=== PATIENT | male | born 1980 | race Caucasian/White ===

== ENCOUNTER 2020-04-02 10:24 | Emergency (ER) | payer OTHER ==
[2020-04-02 10:56] VITALS: TEMP 97.9
--- NOTE | 2020-04-02 12:08 | XR ---
EXAMINATION TYPE: XR lumbosacral spine min 4V DATE OF EXAM: 04/02/2020 CLINICAL HISTORY: pain COMPARISON: NONE TECHNIQUE: Frontal, lateral, and oblique images of the lumbar spine are obtained. FINDINGS: There are 5 lumbar type vertebral bodies identified. The lumbar spine shows satisfactory alignment without evidence of acute fracture or dislocation. Vertebral body heights are within normal limits. Mild degenerative disc space narrowing L5-S1. Right-sided nephrolithiasis. IMPRESSION: No acute fracture or dislocation is seen in the lumbar spine.ICD 10 NO FRACTURE, INITIAL EVALUATION
--- NOTE | 2020-04-02 12:26 | ED ---
Back Pain HPI - General Chief Complaint: Back Pain/Injury Stated Complaint: back injury Time Seen by Provider: 04/02/20 10:58 Source: patient, RN notes reviewed Limitations: no limitations - History of Present Illness Initial Comments: This a 31-year-old male presents emergency Department chief complaint low back pain. Patient states that he started working his abdomen states that the lifting is causing increased back pain. Patient also states that he fell shoveling snow last couple days. Patient denies any bowel, bladder incontinence or retention or saddle anesthesias. Patient states that he is able to cannulate with no difficulty. Patient states he does have a history of disc issue. Patient has no abdominal plain no other injuries. - Related Data Home Medications Medication Instructions Recorded Confirmed ALPRAZolam [Xanax] 0.5 mg PO BID PRN 04/02/20 04/02/20 Previous Rx's Medication Instructions Recorded Cyclobenzaprine [Flexeril] 10 mg PO TID PRN #15 tab 04/02/20 Ibuprofen [Motrin] 600 mg PO Q8HR PRN #30 tab 04/02/20 Allergies Allergy/AdvReac Type Severity Reaction Status Date / Time No Known Allergies Allergy Verified 04/02/20 12:11 Review of Systems ROS Statement: Those systems with pertinent positive or pertinent negative responses have been documented in the HPI. ROS Other: All systems not noted in ROS Statement are negative. Past Medical History Past Medical History: No Reported History History of Any Multi-Drug Resistant Organisms: None Reported Past Surgical History: No Surgical Hx Reported Past Psychological History: Anxiety Smoking Status: Current every day smoker Past Alcohol Use History: Occasional Past Drug Use History: None Reported General Exam Limitations: no limitations General appearance: alert, in no apparent distress Head exam: Present: atraumatic, normocephalic, normal inspection Eye exam: Present: normal appearance, PERRL, EOMI. Absent: scleral icterus, conjunctival injection, periorbital swelling ENT exam: Present: normal exam, normal oropharynx, mucous membranes moist Neck exam: Present: normal inspection, full ROM. Absent: tenderness, meningismus, lymphadenopathy Respiratory exam: Present: normal lung sounds bilaterally. Absent: respiratory distress, wheezes, rales, rhonchi, stridor Cardiovascular Exam: Present: regular rate, normal rhythm, normal heart sounds. Absent: systolic murmur, diastolic murmur, rubs, gallop, clicks Back exam: Present: normal inspection, full ROM, tenderness, muscle spasm, paraspinal tenderness. Absent: CVA tenderness (R), CVA tenderness (L), vertebral tenderness Neurological exam: Present: alert, oriented X3, CN II-XII intact, reflexes normal. Absent: motor sensory deficit Skin exam: Present: warm, dry, intact, normal color. Absent: rash Course Vital Signs 04/02/20 04/02/20 10:54 12:36 Temperature 97.9 F Pulse Rate 105 H 96 Respiratory 16 18 Rate Blood Pressure 138/87 132/81 O2 Sat by Pulse 100 99 Oximetry Medical Decision Making - Medical Decision Making X-rays are negative for acute [place]. Patient's INTACT no red flag symptoms. Patient be discharged in stable condition patient advised follow-up with PCP and orthopedics if no improvement. Disposition Clinical Impression: Strain of lumbar region Disposition: HOME SELF-CARE Condition: Stable Instructions (If sedation given, give patient instructions): Acute Low Back Pain (ED) Additional Instructions: Please return to the Emergency Department if symptoms worsen or any other concerns. Prescriptions: Cyclobenzaprine [Flexeril] 10 mg PO TID PRN #15 tab PRN Reason: Muscle Spasm Ibuprofen [Motrin] 600 mg PO Q8HR PRN #30 tab PRN Reason: Pain Is patient prescribed a controlled substance at d/c from ED?: No Referrals: Albino Gregg MD [Primary Care Provider] - 1-2 days Time of Disposition: 12:26
[2020-04-02 12:36] VITALS: BP 132/81; PULSE 96; RESP 18
== END 2020-04-02 12:36 | disposition home or self-care (01) ==
LOC: EC 10:24
DX: S39.012A Strain of muscle, fascia and tendon of lower back, initial encounter (principal); F41.9 Anxiety disorder, unspecified; F17.200 Nicotine dependence, unspecified, uncomplicated; W19.XXXA Unspecified fall, initial encounter; Y93.H1 Activity, digging, shoveling and raking
CPT/HCPCS: 72110; 99283

== ENCOUNTER 2020-04-02 21:46 | Emergency (ER) | payer OTHER ==
[2020-04-02 21:53] VITALS: RESP 18
--- NOTE | 2020-04-02 22:03 | ED ---
Fall HPI - General Chief Complaint: Fall Stated Complaint: Fall, ETOH Time Seen by Provider: 04/02/20 21:52 Source: patient, EMS, RN notes reviewed Mode of arrival: EMS - History of Present Illness Initial Comments: Patient is a 39-year-old male that presents to emergency department status post fall at the bar. He was recently discharged from the ER today at 12:30 PM for back pain. He was prescribed Flexeril and Motrin. He noted to several patterns at the bar that he took a Xanax before arriving to the bar. He was brought in by EMS but they state that he was reluctant to come and didn't want to. Patient was tired during exam closing his eyes slowly answer questions. Stated that he just wanted to go home. He noted no complaints or issues was not complaining of any pain. He was informed that we have to clear his C-spine before able to discharge him home or movement with a treatment. He denied any chest pain first breath headache nausea vomiting diarrhea constipation fever fatigue chills loss of consciousness change in vision. - Related Data Home Medications Medication Instructions Recorded Confirmed ALPRAZolam [Xanax] 0.5 mg PO BID PRN 04/02/20 04/02/20 Previous Rx's Medication Instructions Recorded Cyclobenzaprine [Flexeril] 10 mg PO TID PRN #15 tab 04/02/20 Ibuprofen [Motrin] 600 mg PO Q8HR PRN #30 tab 04/02/20 Allergies Allergy/AdvReac Type Severity Reaction Status Date / Time No Known Allergies Allergy Verified 04/02/20 12:11 Review of Systems ROS Statement: Those systems with pertinent positive or pertinent negative responses have been documented in the HPI. ROS Other: All systems not noted in ROS Statement are negative. Past Medical History Past Medical History: No Reported History History of Any Multi-Drug Resistant Organisms: None Reported Past Surgical History: No Surgical Hx Reported Past Psychological History: Anxiety Smoking Status: Current every day smoker Past Alcohol Use History: Occasional Past Drug Use History: None Reported General Exam Limitations: altered mental status General appearance: alert, in no apparent distress, obese Head exam: Present: atraumatic, normocephalic, normal inspection Eye exam: Present: normal appearance, PERRL, EOMI. Absent: scleral icterus, conjunctival injection, periorbital swelling ENT exam: Present: normal exam, mucous membranes moist Neck exam: Present: normal inspection, other (C-collar in place). Absent: tenderness, meningismus, lymphadenopathy Respiratory exam: Present: normal lung sounds bilaterally. Absent: respiratory distress, wheezes, rales, rhonchi, stridor Cardiovascular Exam: Present: regular rate, normal rhythm, normal heart sounds. Absent: systolic murmur, diastolic murmur, rubs, gallop, clicks GI/Abdominal exam: Present: soft, normal bowel sounds. Absent: distended, tenderness, guarding, rebound, rigid Extremities exam: Present: normal inspection, full ROM, normal capillary refill. Absent: tenderness, pedal edema, joint swelling, calf tenderness Neurological exam: Present: alert, oriented X3, CN II-XII intact Psychiatric exam: Present: normal affect, depressed Skin exam: Present: warm, dry, intact, normal color. Absent: rash Course Vital Signs 04/02/20 21:47 Temperature 98.2 F Pulse Rate 89 Respiratory 18 Rate Blood Pressure 107/68 O2 Sat by Pulse 90 L Oximetry - Reevaluation(s) Reevaluation #1: 04/02/20 22:31 Patient remove c-collar on his own, tried getting up and out of bed, appeared unstable. He was stopped before standing up and walking and is now back laying in bed. Medical Decision Making - Medical Decision Making 39-year-old male status post fall the bar. C-collar in place. CT of brain and C-spine ordered. Case discussed with Dr. Campos, was decided the patient could be discharged after becoming clinically sober. As he does not have a ride home and was taken taxicab. He does have a roommate days in [place] but patient doesn't recall him to bother him. - Radiology Data Radiology results: report reviewed, image reviewed Negative computed tomography scan of the brain, negative computed tomography scan of cervical spine Disposition Clinical Impression: Fall Disposition: HOME SELF-CARE Condition: Stable Additional Instructions: Please return to the Emergency Department if symptoms worsen or any other concerns. Follow-up with primary care 1-2 days. Follow-up with orthopedic still if back pain gets worse. Is patient prescribed a controlled substance at d/c from ED?: No Referrals: Albino Gregg MD [Primary Care Provider] - 1-2 days Time of Disposition: 22:43
--- NOTE | 2020-04-02 22:32 | CT ---
EXAMINATION TYPE: CT brain cspine wo con DATE OF EXAM: 04/02/2020 COMPARISON: None HISTORY: fall, posterior head injury CT DLP: 2463.6 mGycm Automated exposure control for dose reduction was used. Ventricles have normal size. There is no mass effect nor midline shift. There is no sign of intracran ial hemorrhage. Calvarium is intact. There is no evidence of cerebral edema. The skull base is intact . There is normal aeration of the mastoid sinuses. The occipital bone is intact. The cervical vertebra have normal spacing and alignment. Posterior elements are intact. Facet joints appear normal. There is no evidence of a fracture. Prevertebral soft tissues appear normal. There is no paraspinal mass. IMPRESSION: Negative CT scan of the brain. Negative CT scan cervical spine.
[2020-04-03 00:06] VITALS: BP 128/86; PULSE 108; TEMP 97.5
== END 2020-04-03 00:15 | disposition home or self-care (01) ==
LOC: EC 21:46
DX: Z04.3 Encounter for examination and observation following other accident (principal); F41.9 Anxiety disorder, unspecified; F32.9 Major depressive disorder, single episode, unspecified; F17.200 Nicotine dependence, unspecified, uncomplicated
CPT/HCPCS: 70450; 72125; 99284

== ENCOUNTER 2021-04-05 03:47 | Emergency (ER) | payer OTHER ==
[2021-04-05 03:57] VITALS: BP 127/93; PULSE 88; RESP 18
[2021-04-05] MEDS ORDERED: SULFAMETHOX-TMP 800-160MG 1 EACH TAB PO STA (04:23)
[2021-04-05] MEDS ORDERED: MUPIROCIN 2% OINT 22 GM TUBE TOPICAL STA (04:23)
[2021-04-05] MEDS ORDERED: CEPHALEXIN 500 MG CAP PO STA (04:23)
[2021-04-05] MEDS ORDERED: ACETAMINOPHEN TAB 500 MG TAB PO STA (04:24)
[2021-04-05] MEDS ORDERED: IBUPROFEN 800 MG TAB PO STA (04:24)
[2021-04-05 04:26] VITALS: TEMP 99.4
--- NOTE | 2021-04-05 04:38 | ED ---
Skin/Abscess/FB HPI - General Chief complaint: Skin/Abscess/Foreign Body Stated complaint: Infection on hand Time Seen by Provider: 04/05/21 04:05 Source: patient, RN notes reviewed, old records reviewed Mode of arrival: ambulatory Limitations: no limitations - History of Present Illness Initial comments: Is a 40-year-old male DF for evaluation of significant infection the left hand. And rash with crossed, patient states the restraints.. Very significantly is a little bit swollen maybe mildly painful. No prior history of similar issue. No exposure no,. Patient is no laxity or also noticed fever today. Patient is no medical history takes no medications complaint: rash (Left hand) -: days(s) Tetanus Up to Date: yes Location: L hand Severity: moderate Severity scale (1-10): 7 Quality: burning, aching Consistency: constant Improves with: none Worsens with: none Context: none Associated symptoms: fever Treatments Prior to Arrival: none - Related Data Home Medications Medication Instructions Recorded Confirmed ALPRAZolam [Xanax] 0.5 mg PO BID PRN 04/02/20 04/02/20 Previous Rx's Medication Instructions Recorded Cyclobenzaprine [Flexeril] 10 mg PO TID PRN #15 tab 04/02/20 Ibuprofen [Motrin] 600 mg PO Q8HR PRN #30 tab 04/02/20 Cephalexin [Keflex] 500 mg PO Q6HR #40 cap 04/05/21 Mupirocin Calcium 2% Cream 1 applic TOPICAL TID #15 gm 04/05/21 [Bactroban 2% Cream] Sulfamethox-Tmp 800-160Mg [Bactrim 2 tab PO BID #40 tab 04/05/21 DS 800-160 mg] Allergies Allergy/AdvReac Type Severity Reaction Status Date / Time No Known Allergies Allergy Verified 04/05/21 03:57 Review of Systems ROS Statement: Those systems with pertinent positive or pertinent negative responses have been documented in the HPI. ROS Other: All systems not noted in ROS Statement are negative. Past Medical History Past Medical History: No Reported History History of Any Multi-Drug Resistant Organisms: None Reported Past Surgical History: No Surgical Hx Reported Past Psychological History: Anxiety Smoking Status: Current every day smoker Past Alcohol Use History: Occasional Past Drug Use History: None Reported General Exam Limitations: no limitations General appearance: alert, in no apparent distress Head exam: Present: atraumatic, normocephalic, normal inspection Eye exam: Present: normal appearance, PERRL, EOMI. Absent: scleral icterus, conjunctival injection, periorbital swelling ENT exam: Present: normal exam, mucous membranes moist Neck exam: Present: normal inspection. Absent: tenderness, meningismus, lymphadenopathy Respiratory exam: Present: normal lung sounds bilaterally. Absent: respiratory distress, wheezes, rales, rhonchi, stridor Cardiovascular Exam: Present: regular rate, normal rhythm, normal heart sounds. Absent: systolic murmur, diastolic murmur, rubs, gallop, clicks GI/Abdominal exam: Present: soft, normal bowel sounds. Absent: distended, tenderness, guarding, rebound, rigid Extremities exam: Present: normal inspection, full ROM, normal capillary refill, other (Patient has an impetigo-like rash to left hand). Absent: tenderness, pedal edema, joint swelling, calf tenderness Back exam: Present: normal inspection Neurological exam: Present: alert, oriented X3, CN II-XII intact Psychiatric exam: Present: normal affect, normal mood Skin exam: Present: warm, dry, intact, normal color. Absent: rash Course Vital Signs 04/05/21 04/05/21 03:55 04:25 Temperature 100.4 F H 99.4 F Pulse Rate 88 Respiratory 18 Rate Blood Pressure 127/93 O2 Sat by Pulse 97 Oximetry - Reevaluation(s) Reevaluation #1: 04/05/21 04:36 Medical record is reviewed Reevaluation #2: 04/05/21 04:36 Patient is informed of results and questions answered Reevaluation #3: 04/05/21 04:36 Patient given first doses of antibiotics and fever control here in the ER Medical Decision Making - Medical Decision Making 40 male the ER with impetigo, staff reaction ration of left hand. Patient placed on antibiotics oral and topical and can be discharged home Disposition Clinical Impression: Impetigo, Left hand pain Narrative: Impetigo of Left Hand Disposition: HOME SELF-CARE Condition: Good Instructions (If sedation given, give patient instructions): Impetigo (ED) Prescriptions: Sulfamethox-Tmp 800-160Mg [Bactrim DS 800-160 mg] 2 tab PO BID #40 tab Mupirocin Calcium 2% Cream [Bactroban 2% Cream] 1 applic TOPICAL TID #15 gm Cephalexin [Keflex] 500 mg PO Q6HR #40 cap Is patient prescribed a controlled substance at d/c from ED?: No Referrals: Ila Moss MD [Primary Care Provider] - 1-2 days
== END 2021-04-05 05:02 | disposition home or self-care (01) ==
LOC: EC 03:47
DX: M79.642 Pain in left hand (principal); L01.00 Impetigo, unspecified; F17.200 Nicotine dependence, unspecified, uncomplicated
CPT/HCPCS: 99283

== ENCOUNTER 2021-05-23 17:24 | Emergency (ER) | payer OTHER ==
[2021-05-23 17:35] VITALS: BP 146/90; PULSE 114; RESP 18; TEMP 98.8
--- NOTE | 2021-05-23 18:05 | ED ---
General Adult HPI - General Chief complaint: Shortness of Breath Stated complaint: Headache, Nausea, Chills Time Seen by Provider: 05/23/21 17:40 Source: patient, RN notes reviewed Mode of arrival: ambulatory Limitations: no limitations - History of Present Illness Initial comments: Patient is a pleasant 41-year-old male presents emergency department with concern for COVID-19 infection. Patient had onset of symptoms late last night. Patient tested positive twice at home today. Patient would like to be tested again today for documentation for work. Patient complains of cough and congestion. Mild shortness of breath. Patient has mild headache. Mild nausea. No diarrhea. No loss of taste or smell. No calf pain or leg swelling. - Related Data Home Medications Medication Instructions Recorded Confirmed Ibuprofen [Motrin Ib] 800 mg PO Q8H PRN 05/23/21 05/23/21 Allergies Allergy/AdvReac Type Severity Reaction Status Date / Time No Known Allergies Allergy Verified 05/23/21 18:08 Review of Systems ROS Statement: Those systems with pertinent positive or pertinent negative responses have been documented in the HPI. ROS Other: All systems not noted in ROS Statement are negative. Constitutional: Reports: fever, chills Eyes: Denies: eye pain ENT: Reports: congestion Respiratory: Reports: as per HPI, cough Cardiovascular: Denies: chest pain Endocrine: Reports: fatigue Gastrointestinal: Reports: nausea. Denies: abdominal pain, vomiting, diarrhea Genitourinary: Denies: dysuria Musculoskeletal: Denies: back pain Skin: Denies: rash Neurological: Denies: weakness Past Medical History Past Medical History: No Reported History History of Any Multi-Drug Resistant Organisms: None Reported Past Surgical History: No Surgical Hx Reported Past Psychological History: Anxiety Smoking Status: Current every day smoker Past Alcohol Use History: Occasional Past Drug Use History: None Reported General Exam Limitations: no limitations General appearance: alert, in no apparent distress Head exam: Present: normocephalic Eye exam: Present: normal appearance Neck exam: Present: normal inspection Respiratory exam: Present: normal lung sounds bilaterally Cardiovascular Exam: Present: regular rate, normal rhythm GI/Abdominal exam: Present: soft. Absent: tenderness Extremities exam: Present: normal inspection. Absent: pedal edema, calf tenderness Neurological exam: Present: alert Psychiatric exam: Present: normal affect, normal mood Skin exam: Present: normal color Course Vital Signs 05/23/21 17:33 Temperature 98.8 F Pulse Rate 114 H Respiratory 18 Rate Blood Pressure 146/90 O2 Sat by Pulse 99 Oximetry - Reevaluation(s) Reevaluation #1: 05/23/21 18:04 Patient recommended blood work to test for possible blood clots and further evaluation however patient refuses. Patient does them straight medical decision making. Patient just like repeat testing for work and consider oral antivirals. Review does show patient does qualify for pack slow vent secondary to BMI greater than 30. Medical Decision Making - Medical Decision Making Based on current guidelines patient can qualify for PAxlovid and this was prescribed. Patient given work note as well. Patient updated. - Lab Data Lab Results 05/23/21 Range/Units 17:53 Coronavirus (PCR) Detected A (Not Detectd) Disposition Clinical Impression: COVID-19 Disposition: HOME SELF-CARE Condition: Stable Instructions (If sedation given, give patient instructions): COVID-19 (Coronavirus Disease 2019) (ED) Additional Instructions: Please do follow-up with primary care physician in the next day or 2 for recheck. Prescription for paxlovid. Obtain at [facility]. [id number] vitamin C, vitamin D, and 6. Return for difficulty breathing, worsening or changing symptoms or other concerns. Work note provided. Is patient prescribed a controlled substance at d/c from ED?: No Referrals: Ila Moss MD [Primary Care Provider] - 1-2 days Time of Disposition: 18:52
== END 2021-05-23 19:03 | disposition home or self-care (01) ==
LOC: EC 17:24
DX: F17.200 Nicotine dependence, unspecified, uncomplicated (principal); U07.1 COVID-19
CPT/HCPCS: 87635; 99284

== ENCOUNTER → 2021-08-20 | Outpatient (CLI) | payer OTHER ==
[2021-08-20 11:06] LABS: Basophils # (A) 0.04 X 10*3/uL (0.00-0.10); Basophils % (A) 0.5 %; Eosinophils # (A) 0.22 X 10*3/uL (0.04-0.35); Eosinophils % (A) 2.6 %; HCT 44.4 % (39.6-50.0); HGB 14.5 g/dL (13.0-17.0); Immature Grans, Automated 0.4 %; Lymphocytes % (A) 27.3 %; MCH 29.1 pg (27.0-32.0); MCHC 32.7 g/dL (32.0-37.0); Mean Platelet Volume 10.4 fL (9.5-12.2); Monocytes % (A) 8.3 %; NRBC Per 100 WBC 0 /100 WBCS (0.0-0.0); Neutrophils # (A) 5.12 X 10*3/uL (1.80-7.70); Neutrophils % (A) 60.9 %; Platelet Count 314 X 10*3/uL (140-440); RBC 4.99 X 10*6/uL (4.40-5.60); RDW 13.9 % (11.5-14.5); WBC 8.41 X 10*3/uL (4.50-10.00)
[2021-08-20 12:37] LABS: ALT 26 U/L (10-49); AST 23 U/L (14-35); African American GFR (CKD) 123.4 (60.0-200.0); Albumin 4.1 g/dL (3.8-4.9); Albumin/Globulin Ratio 1.71 (1.60-3.17); Alkaline Phosphatase 67 U/L (41-126); BUN/Creat Ratio 21.44 Ratio (12.00-20.00); Blood Urea Nitrogen 19.3 mg/dL (9.0-27.0); Calcium 9.2 mg/dL (8.7-10.3); Carbon Dioxide 20.6 mmol/L (20.0-27.5); Chloride 108 mmol/L (96-109); Globulin 2.4 g/dL (1.6-3.3); Glucose 96 mg/dL (70-110); LDL Cholesterol,Calculated 94.9 mg/dL (0.0-131.0); Non-African American GFR(CKD) 106.5 (60.0-200.0); Potassium 4.3 mmol/L (3.5-5.5); Sodium 141 mmol/L (135-145); Total Protein 6.5 g/dL (6.2-8.2); VLDL Calculation 15.84 mg/dL (5.00-40.00)
== END | disposition home or self-care (01) ==
LOC: LABWHC1 07:34
PROVIDERS: ATTEND Family Medicine
DX: Z00.00 Encounter for general adult medical examination without abnormal findings (principal); Z11.59 Encounter for screening for other viral diseases
CPT/HCPCS: 36415; 80053; 80061; 84439; 84443; 85025; 86803

== ENCOUNTER 2023-08-22 08:46 | Emergency (ER) | payer OTHER ==
[2023-08-22 08:52] VITALS: RESP 18
[2023-08-22 08:57] LABS: Glucose,Whole Blood 205 mg/dL (70-110)
[2023-08-22] MEDS: SODIUM CHLORIDE 0.9% 2,000 ML IV ONE (09:15)
[2023-08-22 09:34] LABS: Appearance,Urine Clear (Clear); Bilirubin,Urine Negative (Negative); Blood,Urine Negative (Negative); Color,Urine Yellow; Glucose,Urine (UA) 4+ (Negative); Ketones,Urine Trace (Negative); Leukocyte Esterase,Urine Negative (Negative); Nitrite,Urine Negative (Negative); PH, Urine 6.5 (5.0-8.0); Protein,Urine Trace (Negative); Specific Gravity,Urine 1.025 (1.001-1.035); Urobilinogen,Urine <2.0 mg/dL (<2.0)
[2023-08-22 09:48] LABS: ALT 60 U/L (4-49); AST 45 U/L (17-59); African American GFR (CKD) >90 (>60 ml/min/1.73 sqM); Albumin 4.4 g/dL (3.5-5.0); Alkaline Phosphatase 60 U/L (38-126); Anion Gap 8 mmol/L; Blood Urea Nitrogen 16 mg/dL (9-20); Calcium 9.8 mg/dL (8.4-10.2); Carbon Dioxide 25 mmol/L (22-30); Chloride 106 mmol/L (98-107); Glucose 191 mg/dL (74-99); Magnesium 2.1 mg/dL (1.6-2.3); Non-African American GFR(CKD) 90 (>60 ml/min/1.73 sqM); Potassium 3.8 mmol/L (3.5-5.1); Sodium 139 mmol/L (137-145); Total Bilirubin 2.1 mg/dL (0.2-1.3); Total Protein 7.4 g/dL (6.3-8.2)
[2023-08-22 09:55] LABS: Basophils # (A) 0.1 k/uL (0-0.2); Basophils % (A) 1 %; Eosinophils # (A) 0.2 k/uL (0-0.7); Eosinophils % (A) 2 %; HCT 47.5 % (39.0-53.0); HGB 16.3 gm/dL (13.0-17.5); Lymphocytes # (A) 2.8 k/uL (1.0-4.8); Lymphocytes % (A) 30 %; MCHC 34.4 g/dL (31.0-37.0); MCV 87.4 fL (80.0-100.0); Mean Platelet Volume 7.4; Monocytes # (A) 0.6 k/uL (0-1.0); Monocytes % (A) 6 %; Neutrophils # (A) 5.6 k/uL (1.3-7.7); Neutrophils % (A) 60 %; Platelet Count 362 k/uL (150-450); Poikilocytosis Slight; RBC 5.43 m/uL (4.30-5.90); RDW 14.9 % (11.5-15.5); WBC 9.2 k/uL (3.8-10.6)
--- NOTE | 2023-08-22 09:55 | ED ---
General Adult HPI - General Chief complaint: Recheck/Abnormal Lab/Rx Stated complaint: High sugar in urine Time Seen by Provider: 08/22/23 08:50 Source: patient, RN notes reviewed, old records reviewed Mode of arrival: ambulatory Limitations: no limitations - History of Present Illness Initial comments: This is a 43-year-old male who presents to the emergency department stating that he was told he had quite a bit of sugar in his urine and that he probably has diabetes so he came to the emergency department. Patient states he been urinating quite a bit lately and drinking a lot of fluid lately. Patient states he has been feeling weak for the last couple of months as well. Patient [place] any fever chills or cough or patient has chest pain difficulty and shortness of breath. Patient has any abdominal pain patient denies any nausea vomiting or d iarrhea in the last few days. - Related Data Home Medications Medication Instructions Recorded Confirmed No Known Home Medications 08/22/23 08/22/23 Allergies Allergy/AdvReac Type Severity Reaction Status Date / Time No Known Allergies Allergy Verified 08/22/23 10:21 Review of Systems ROS Statement: Those systems with pertinent positive or pertinent negative responses have been documented in the HPI. ROS Other: All systems not noted in ROS Statement are negative. Past Medical History Past Medical History: No Reported History History of Any Multi-Drug Resistant Organisms: None Reported Past Surgical History: No Surgical Hx Reported Past Psychological History: Anxiety Smoking Status: Current every day smoker Past Alcohol Use History: Occasional Past Drug Use History: None Reported General Exam - General Exam Comments Initial Comments: GENERAL: Patient is well-developed and well-nourished. Patient is nontoxic and well- hydrated and is in mild distress. ENT: Neck is soft and supple. No significant lymphadenopathy is noted. Oropharynx is clear. Moist mucous membranes. Neck has full range of motion without eliciting any pain. EYES: The sclera were anicteric and conjunctiva were pink and moist. Extraocular movements were intact and pupils were equal round and reactive to light. Eyelids were unremarkable. PULMONARY: Unlabored respirations. Good breath sounds bilaterally. No audible rales rhonchi or wheezing was noted. CARDIOVASCULAR: There is a regular rate and rhythm without any murmurs gallops or rubs. ABDOMEN: Soft and nontender with normal bowel sounds. SKIN: Skin is clear with no lesions or rashes and otherwise unremarkable. NEUROLOGIC: Patient is alert and oriented x3. Cranial nerves II through XII are grossly intact. Motor and sensory are also intact. Normal speech, volume and content. Symmetrical smile. MUSCULOSKELETAL: Normal extremities with adequate strength and full range of motion. No lower extremity swelling or edema. No calf tenderness. LYMPHATICS: No significant lymphadenopathy is noted PSYCHIATRIC: Normal psychiatric evaluation. Limitations: no limitations Course Vital Signs 08/22/23 08/22/23 08:50 11:09 Temperature 97.9 F 98.6 F Pulse Rate 88 81 Respiratory 18 18 Rate Blood Pressure 168/102 145/98 O2 Sat by Pulse 96 98 Oximetry Medical Decision Making - Medical Decision Making Was pt. sent in by a medical professional or institution (, [facility], MILLWORK ESTIMATOR, urgent care, hospital, or fpc...) When possible be specific @ -No Did you speak to anyone other than the patient for history (EMS, parent, family, police, friend...)? What history was obtained from this source @ -No Did you review nursing and triage notes (agree or disagree)? Why? @ -I reviewed and agree with nursing and triage notes Were old charts reviewed (outside hosp., previous admission, EMS record, old EKG, old radiological studies, urgent care reports/EKG's, fpc records)? Report findings @ -No old charts were reviewed Differential Diagnosis? @ -Urinary tract infection, polydipsia, diabetes, this is not an all-inclusive list EKG interpreted by me (3pts min.). @ -As above X-rays interpreted by me (1pt min.). @ -None done CT interpreted by me (1pt min.). @ -None done U/S interpreted by me (1pt. min.). @ -None done What testing was considered but not performed or refused? (CT, X-rays, U/S, labs)? Why? @ -None What meds were considered but not given or refused? Why? @ -None Did you discuss the management of the patient with other professionals (professionals i.e. CHERELLE Hayes, MILLWORK ESTIMATOR, lab, RT, psych nurse, social services counselor, vehicle calibration engineer, teacher, transport corps officer, comp field case manager)? Give summary @ -I spoke with Dr. Almeida he agreed to admit the patient admit the patient wrote admitting orders Was smoking cessation discussed for >3mins.? @ -No Was critical care preformed (if so, how long)? @ -No Were there social determinants of health that impacted care today? How? (Homelessness, low income, unemployed, alcoholism, drug addiction, transportation, low edu. Level, literacy, decrease access to med. care, fpc, rehab)? @ -No Was there de-escalation of care discussed even if they declined (Discuss DNR or withdrawal of care, Hospice)? DNR status @ -No What co-morbidities impacted this encounter? (DM, HTN, Smoking, COPD, CAD, Cancer, CVA, ARF, Chemo, Hep., AIDS, mental health diagnosis, sleep apnea, morbid obesity)? @ -None Was patient admitted / discharged? Hospital course, mention meds given and route, prescriptions, significant lab abnormalities, going to OR and other pertinent info. @ -Patient's sugar was 200 however there was no acetone so the patient appears to be a new onset diabetes I spoke with Dr. Ignacio he agrees to admit the patient admit the patient wrote admitting orders. After patient was admitted patient was able to get her primary medical care doctor appointment tomorrow morning so patient will be discharged Undiagnosed new problem with uncertain prognosis? @ -No Drug Therapy requiring intensive monitoring for toxicity (Heparin, Nitro, Insulin, Cardizem)? @ -No Were any procedures done? @ -No Diagnosis/symptom? @ -New onset diabetic Acute, or Chronic, or Acute on Chronic? @ -Acute Uncomplicated (without systemic symptoms) or Complicated (systemic symptoms)? @ -Complicated Side effects of treatment? @ -No Exacerbation, Progression, or Severe Exacerbation? @ -No Poses a threat to life or bodily function? How? (Chest pain, [place], [place], pneumonia, PE, COPD, DKA, ARF, appy, cholecystitis, CVA, Diverticulitis, Homicidal, Suicidal, threat to staff... and all critical care pts) @ -No - Lab Data Result diagrams: 08/22/23 09:14 08/22/23 09:14 Lab Results 08/22/23 08/22/23 08/22/23 Range/Units 08:56 08:57 09:14 WBC 9.2 (3.8-10.6) k/uL RBC 5.43 (4.30-5.90) m/uL Hgb 16.3 (13.0-17.5) gm/dL Hct 47.5 (39.0-53.0) % MCV 87.4 (80.0-100.0) fL MCH 30.0 (25.0-35.0) pg MCHC 34.4 (31.0-37.0) g/dL RDW 14.9 (11.5-15.5) % Plt Count 362 (150-450) k/uL MPV 7.4 Neutrophils % 60 % Lymphocytes % 30 % Monocytes % 6 % Eosinophils % 2 % Basophils % 1 % Neutrophils # 5.6 (1.3-7.7) k/uL Lymphocytes # 2.8 (1.0-4.8) k/uL Monocytes # 0.6 (0-1.0) k/uL Eosinophils # 0.2 (0-0.7) k/uL Basophils # 0.1 (0-0.2) k/uL Manual Slide Review Performed Poikilocytosis Slight Sodium (137-145) mmol/L Potassium (3.5-5.1) mmol/L Chloride (98-107) mmol/L Carbon Dioxide (22-30) mmol/L Anion Gap mmol/L BUN (9-20) mg/dL Creatinine (0.66-1.25) mg/dL Est GFR (CKD-EPI)AfAm (>60 ml/min/1.73 sqM) Est GFR (CKD-EPI)NonAf (>60 ml/min/1.73 sqM) Glucose (74-99) mg/dL POC Glucose (mg/dL) 205 H (70-110) mg/dL POC Glu Burning Plant Operator ID Cristin Dillard Calcium (8.4-10.2) mg/dL Magnesium (1.6-2.3) mg/dL Total Bilirubin (0.2-1.3) mg/dL AST (17-59) U/L ALT (4-49) U/L Alkaline Phosphatase (38-126) U/L Total Protein (6.3-8.2) g/dL Albumin (3.5-5.0) g/dL Urine Color Yellow Urine Appearance Clear (Clear) Urine pH 6.5 (5.0-8.0) Ur Specific [place] 1.025 (1.001-1.035) Urine Protein Trace H (Negative) Urine Glucose (UA) 4+ H (Negative) Urine Ketones Trace H (Negative) Urine Blood Negative (Negative) Urine Nitrite Negative (Negative) Urine Bilirubin Negative (Negative) Urine Urobilinogen <2.0 (<2.0) mg/dL Ur Leukocyte Esterase Negative (Negative) Acetone, Qual (Negative) 08/22/23 08/22/23 Range/Units 09:14 10:41 WBC (3.8-10.6) k/uL RBC (4.30-5.90) m/uL Hgb (13.0-17.5) gm/dL Hct (39.0-53.0) % MCV (80.0-100.0) fL MCH (25.0-35.0) pg MCHC (31.0-37.0) g/dL RDW (11.5-15.5) % Plt Count (150-450) k/uL MPV Neutrophils % % Lymphocytes % % Monocytes % % Eosinophils % % Basophils % % Neutrophils # (1.3-7.7) k/uL Lymphocytes # (1.0-4.8) k/uL Monocytes # (0-1.0) k/uL Eosinophils # (0-0.7) k/uL Basophils # (0-0.2) k/uL Manual Slide Review Poikilocytosis Sodium 139 (137-145) mmol/L Potassium 3.8 (3.5-5.1) mmol/L Chloride 106 (98-107) mmol/L Carbon Dioxide 25 (22-30) mmol/L Anion Gap 8 mmol/L BUN 16 (9-20) mg/dL Creatinine 1.03 (0.66-1.25) mg/dL Est GFR (CKD-EPI)AfAm >90 (>60 ml/min/1.73 sqM) Est GFR (CKD-EPI)NonAf 90 (>60 ml/min/1.73 sqM) Glucose 191 H (74-99) mg/dL POC Glucose (mg/dL) 116 H (70-110) mg/dL POC Glu Burning Plant Operator ID Gayle Rice Calcium 9.8 (8.4-10.2) mg/dL Magnesium 2.1 (1.6-2.3) mg/dL Total Bilirubin 2.1 H (0.2-1.3) mg/dL AST 45 (17-59) U/L ALT 60 H (4-49) U/L Alkaline Phosphatase 60 (38-126) U/L Total Protein 7.4 (6.3-8.2) g/dL Albumin 4.4 (3.5-5.0) g/dL Urine Color Urine Appearance (Clear) Urine pH (5.0-8.0) Ur Specific [place] (1.001-1.035) Urine Protein (Negative) Urine Glucose (UA) (Negative) Urine Ketones (Negative) Urine Blood (Negative) Urine Nitrite (Negative) Urine Bilirubin (Negative) Urine Urobilinogen (<2.0) mg/dL Ur Leukocyte Esterase (Negative) Acetone, Qual Negative (Negative) Disposition Clinical Impression: New onset type 2 diabetes mellitus Disposition: HOME SELF-CARE Condition: Good Instructions (If sedation given, give patient instructions): Type 2 Diabetes in Adults: New Diagnosis (DC) Is patient prescribed a controlled substance at d/c from ED?: No Referrals: Darren Harman MD [REFERRING] - 08/23/23 10:00 am (Please bring ID Cards and insurance cards. You will have new patient paperowkr to complete. ) Time of Disposition: 10:49
[2023-08-22 10:43] LABS: Glucose,Whole Blood 116 mg/dL (70-110)
[2023-08-22] MEDS: SODIUM CHLORIDE 0.9% 1,000 ML IV ONE (11:08)
[2023-08-22 11:10] VITALS: BP 145/98; PULSE 81; TEMP 98.6
== END 2023-08-22 11:42 | disposition home or self-care (01) ==
LOC: EC 08:46
DX: E11.9 Type 2 diabetes mellitus without complications (principal); F17.200 Nicotine dependence, unspecified, uncomplicated
CPT/HCPCS: 36415; 80053; 81003; 82009; 83036; 83735; 85025; 96360; 96361; 99284